=== PATIENT | female | born 1970 | race African-American/Black ===

== ENCOUNTER 2017-05-15 21:52 | Emergency (ER) | payer MEDICARE ==
[~2017-05-15] VITALS: Ht 167.6 cm; Wt 97.1 kg
[~2017-05-15 21:52] MED LIST: IBUP-1060 PO
[2017-05-15 21:55] VITALS: BP 120/71
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
--- NOTE | 2017-05-15 23:38 | RAD ---
CT PELVIS WO CONTRAST dated 05/15/2017 10:50 PM Indication: Left hip pain after fall..left hip pain after fall. Comparison: No comparison is available. Technique: Contiguous axial imaging of left hip performed with thin cut coronal and sagittal reconstruction. One or more of the following individualized dose reduction techniques were utilized for this examination: 1. Automated exposure control 2. Adjustment of the mA and/or kV according to patient size 3. Use of iterative reconstruction technique Findings: Bony alignment is anatomic. No displaced fracture. Pelvic ring is intact. No acute osseous or articular abnormality. Minimal hypertrophic changes of the bilateral hip joint, left greater than right. Visualized soft tissue structures unremarkable. Appendix normal in caliber. No ascites or lymphadenopathy. IMPRESSION: No acute abnormality of pelvis. Electronically signed by: Terrell Chapman MD (05/15/2017 11:35 PM) [facility]
[2017-05-15] MEDS ORDERED: TRAM50TA PO (23:51)
--- NOTE | 2017-05-16 08:12 | RAD ---
AP pelvis to include AP and lateral radiographs of the left hip May 15, 2017 Clinical history: Fall with injury to the left hip. Left hip pain. An AP digital radiograph of the pelvis to include both hips was obtained. AP and lateral digital radiographs of the left hip were obtained. No pelvic bone fractures seen. Both hips are intact. Specifically no fracture or dislocation of the left hip is seen. Calcifications are seen within the pelvis consistent with phleboliths. Impression: No fracture or dislocation is seen.
== END 2017-05-15 23:54 | disposition home or self-care (01) ==
LOC: ER 21:52
DX: S79.912A Unspecified injury of left hip, initial encounter (principal); J45.909 Unspecified asthma, uncomplicated; W01.118A Fall on same level from slipping, tripping and stumbling with subsequent striking against other sharp object, initial encounter; Y93.01 Activity, walking, marching and hiking; Y99.8 Other external cause status; Y92.89 Other specified places as the place of occurrence of the external cause
CPT/HCPCS: 72192; 73502; 99284-25